=== PATIENT | male | born 1955 | race Two or more races ===

== ENCOUNTER 2024-07-04 10:46 | Inpatient (IN) | payer OTHER ==
[2024-07-04 11:22] VITALS: BMI 28.7
[2024-07-04] MEDS ORDERED: BENZONATATE 200 MG CAPSULE PO PRN (14:21)
[2024-07-04] MEDS ORDERED: POLYETHYLENE GLYCOL (HEALTHYLAX) 3350 17 GM PACKET PO PRN (14:21)
[2024-07-04] MEDS ORDERED: NALOXONE (NYS OPIOID OVERDOSE PROGRAM) 4 MG/0.1 ML SPRAY NS PRN (14:21)
[2024-07-04] MEDS ORDERED: MAG HYDROX/AL HYDROX/SIMETH 30 ML UNIT-DOSE CUP PO PRN (14:21)
[2024-07-04] MEDS ORDERED: hydrOXYzine PAMOATE 25 MG CAPSULE (FP) PO PRN (14:21)
[2024-07-04] MEDS ORDERED: BENZOCAINE/MENTHOL (CHLORASEPTIC ) LOZENGE MM PRN (14:21)
[2024-07-04] MEDS ORDERED: IBUPROFEN 400 MG TABLET (FP) PO PRN (14:21)
[2024-07-04] MEDS ORDERED: NALOXONE (NARCAN) HCL 4 MG/0.1 ML SPRAY NS PRN (14:21)
[2024-07-04] MEDS ORDERED: LOPERAMIDE HCL 2 MG CAPSULE PO PRN (14:21)
[2024-07-04] MEDS ORDERED: guaiFENesin 600 MG TABLET.ER (FP) PO PRN (14:21)
[2024-07-04] MEDS ORDERED: MAGNESIUM HYDROX 2400MG/30ML ORAL SUSPENSION 30 ML CUP PO PRN (14:21)
[2024-07-04] MEDS ORDERED: ACETAMINOPHEN 325 MG TABLET (FP) PO PRN (14:21)
[2024-07-04] MEDS ORDERED: cloNIDine HCL 0.1 MG TABLET ONE (15:20)
[2024-07-04] MEDS: cloNIDine HCL 0.1 MG TABLET PO ONE (15:20)
[2024-07-04] MEDS: TUBERCULIN PPD 5 TU/0.1ML SYRINGE (IN PATIENT USE ONLY) ID ONE (18:10)
[2024-07-04 20:22] LABS: PH,URINE 7.5 (5.0-8.0); URINE APPEARANCE CLEAR; URINE BILIRUBIN NEGATIVE (NEGATIVE); URINE COLOR YELLOW; URINE GLUCOSE (UA) NEGATIVE (NEGATIVE); URINE KETONE NEGATIVE (NEGATIVE); URINE LEUK ESTERASE NEGATIVE (NEGATIVE); URINE NITRITE NEGATIVE (NEGATIVE); URINE PROTEIN NEGATIVE (NEGATIVE); URINE UROBILINOGEN 0.2 mg/dL (0.2-1.0)
[2024-07-04] MEDS: THIAMINE 100 MG TABLET PO SCH (21:24)
[2024-07-04] MEDS: MELATONIN 5 MG TABLETS PO SCH (21:24)
[2024-07-04] MEDS: ATORVASTATIN CA 40 MG TABLET (FP) PO SCH (21:25)
[2024-07-04] MEDS: IBUPROFEN 600 MG TABLET (FP) PO PRN (21:25)
[2024-07-05] MEDS: metoPROLOL SUCCINATE 25 MG TAB.SR.24H (FP) PO SCH (09:50)
[2024-07-05] MEDS: ASPIRIN 81 MG CHEWABLE TABLETS PO SCH (09:50)
[2024-07-05] MEDS: PRENATAL VITAMINS W/ FOLIC ACID TABLET (FP) PO SCH (10:08)
[2024-07-05 10:41] LABS: HEMATOCRIT 41.5 % (35.4-49); HEMOGLOBIN 13.9 GM/dL (11.7-16.9); MCHC 33.4 g/dl (32.0-35.9); MEAN CELL VOLUME 92.7 fl (80-96); MEAN PLT VOLUME 8.6 fl (7.5-11.1); PLATELET COUNT 194 10^3/uL (134-434); RBC 4.48 M/mm3 (4.00-5.60); RDW 13.3 % (11.9-15.9); WHITE BLOOD COUNT 8.8 K/mm3 (4.0-10.0)
[2024-07-05 10:49] LABS: POTASSIUM 4.3 mmol/L (3.5-5.1)
[2024-07-05 10:58] LABS: ALBUMIN 3.6 g/dl (3.4-5.0); CALCIUM 9.2 mg/dL (8.5-10.1)
[2024-07-05 10:59] LABS: BLOOD UREA NITROGEN 10.6 mg/dL (7-18)
[2024-07-05 11:03] LABS: BILIRUBIN,TOTAL 0.4 mg/dL (0.2-1); CREATININE 0.7 mg/dL (0.55-1.3); TOT PROT 6.6 g/dl (6.4-8.2)
[2024-07-05] MEDS: ALBUTEROL SO4 HFA INHALER IH PRN (15:28)
[2024-07-05] MEDS: MIRTAZAPINE 15 MG TABLET (FP) PO SCH (21:13)
[2024-07-11] MEDS: MELATONIN 5 MG TABLETS PO SCH (21:17)
[2024-07-12] MEDS: SUVOREXANT 10 MG TABLET PO PRN (21:23)
[2024-07-12] MEDS: hydrOXYzine PAMOATE 25 MG CAPSULE (FP) PO PRN (21:25)
[2024-07-15] MEDS: SUVOREXANT 10 MG TABLET PO PRN (21:12)
[2024-07-18] MEDS: SUVOREXANT 10 MG TABLET PO PRN (21:02)
[2024-07-21] MEDS: SUVOREXANT 10 MG TABLET PO PRN (21:27)
[2024-07-24] MEDS ORDERED: NALOXONE (NYS OPIOID OVERDOSE PROGRAM) 4 MG/0.1 ML SPRAY NS PRN (11:45)
[2024-07-24] MEDS: SUVOREXANT 15 MG TABLET PO PRN (21:23)
[2024-07-24] MEDS ORDERED: SUVOREXANT 10 MG TABLET PO PRN (22:00)
[2024-07-25 06:40] VITALS: RESP 17; TEMP 97.5
[2024-07-25 08:58] VITALS: BP 127/86; PULSE 86
== END 2024-07-25 09:22 | disposition home or self-care (01) | DRG 895 ==
LOC: YASAS 10:46 → Y3W 14:31
PROVIDERS: ADMIT Psychiatry & Neurology Pain Medicine; ATTEND Psychiatry & Neurology Pain Medicine
PROC: HZ42ZZZ Group Counseling for Substance Abuse Treatment, Cognitive-Behavioral (ICD-10-PCS; principal; 2024-07-04)
DX: F11.20 Opioid dependence, uncomplicated (principal); F10.20 Alcohol dependence, uncomplicated; F12.20 Cannabis dependence, uncomplicated; I10 Essential (primary) hypertension; J45.909 Unspecified asthma, uncomplicated; H53.8 Other visual disturbances; M54.50 Low back pain, unspecified; G89.29 Other chronic pain; Z87.891 Personal history of nicotine dependence
CPT/HCPCS: 36415; 80053; 80305; 80307; 81003; 82140; 82652; 83735; 85027; 86780; 86803; 87522; 87811; 93005; 93010